=== PATIENT | male | born 1945 | race Caucasian/White ===

== ENCOUNTER 2020-02-17 14:04 | Outpatient (REF) | payer BC, SELFPAY ==
[2020-02-17 17:18] LABS: Anion Gap 6.8 mmol/L (3-11); BUN 21 mg/dL (7-18); CO2 25.2 mmol/L (21.0-32.0); CREATININE 1.13 mg/dL (0.70-1.30); Calcium 8.9 mg/dL (8.5-10.1); Calculated LDL 135 mg/dL (<100); Chloride 104 mmol/L (98-107); Cholesterol 204 mg/dL (<200); Glucose 83 mg/dL (74-106); HDL Cholesterol 50 mg/dL (40-60); Potassium 4.4 mmol/L (3.5-5.1); Sodium 136 mmol/L (136-145); Triglyceride 95 mg/dL (<150)
[2020-02-18 10:23] LABS: Hepatitis C Ab w Rflx HCV PCR Negative (Negative)
== END 2020-02-17 14:24 ==
LOC: NCHCN 14:04
PROVIDERS: PCP Internal Medicine; Visit Provider Family Medicine
DX: Z00.00 Encounter for general adult medical examination without abnormal findings (principal); I10 Essential (primary) hypertension; Z11.59 Encounter for screening for other viral diseases
CPT/HCPCS: 80048; 80061; 86803

== ENCOUNTER 2020-02-25 14:42 | Outpatient (REF) | payer BC, SELFPAY ==
[2020-03-02 03:22] LABS: SARS-CoV-2 RNA Undetected (Undetected); SARS-CoV-2 Specimen Source Nasopharynx
== END 2020-02-25 15:02 ==
LOC: NCHCN 14:42
PROVIDERS: PCP Internal Medicine; Visit Provider Nurse Practitioner Family
DX: Z20.828 Contact with and (suspected) exposure to other viral communicable diseases (principal)
CPT/HCPCS: U0003

== ENCOUNTER 2020-11-30 19:10 | Outpatient (REF) | payer BC, SELFPAY ==
[2020-11-30 19:36] LABS: CREATININE 1.1 mg/dL (0.70-1.30)
== END 2020-11-30 19:11 | disposition home or self-care (01) ==
LOC: NCHCN 19:10
PROVIDERS: PCP Internal Medicine; Visit Provider Family Medicine
DX: I10 Essential (primary) hypertension (principal)
CPT/HCPCS: 82565

== ENCOUNTER 2021-07-27 02:49 | Outpatient (CLI) | payer BC, SELFPAY ==
[2021-07-27] MEDS: Inhaler, Assist Device 1 EACH MC (11:26)
[2021-07-27] MEDS: Albuterol HFA 18 GM 200 PUFF INH IH (11:26)
--- NOTE | 2021-07-28 09:39 | W.PFT ---
Date of service: 07/27/21 Time of Service: 10:01 Pulmonary Function Test Result Requesting Provider Konstantin Land Indications: Interstitial fibrosis Interpretation Spirometry: There is mild airflow limitation. There is no significant bronchodilator response. Lung Volumes: There is evidence of hyperinflation. Diffusion Capacity: The diffusion is normal Airway Pressure: The airways resistance is normal Impression There is mild airflow limitation with hyperinflation and no bronchodilator response. Clinical Correlation therefore is recommended.
== END 2021-07-27 02:50 | disposition home or self-care (01) ==
LOC: RT 02:49
PROVIDERS: PCP Internal Medicine; Visit Provider Family Medicine
DX: J84.10 Pulmonary fibrosis, unspecified (principal); J43.9 Emphysema, unspecified; Z87.891 Personal history of nicotine dependence; R94.2 Abnormal results of pulmonary function studies
CPT/HCPCS: 94060; 94726; 94729

== ENCOUNTER 2023-01-14 13:14 | Outpatient (REF) | payer BC, SELFPAY | END 2023-01-14 13:15 | disposition home or self-care (01) | LOC: LBN 13:14 | PROVIDERS: PCP Family Medicine; Visit Provider Nurse Practitioner Family | DX: J02.9 Acute pharyngitis, unspecified (principal) | CPT/HCPCS: 87070 ==

== ENCOUNTER 2023-07-23 16:55 | Outpatient (REF) | payer BC, SELFPAY ==
[2023-07-23 18:47] LABS: Hemoglobin A1C 5.9 % (<5.7)
[2023-07-23 18:55] LABS: CREATININE 1.2 mg/dL (0.70-1.30); Calculated LDL 175 mg/dL (<100); Cholesterol 255 mg/dL (<200); Estimated GFR 61.52 (mL/min/1.73m2); HDL Cholesterol 62 mg/dL (40-60); Triglyceride 92 mg/dL (<150)
== END 2023-07-23 16:56 | disposition home or self-care (01) ==
LOC: NCHCN 16:55
PROVIDERS: PCP Family Medicine; Visit Provider Family Medicine
DX: I10 Essential (primary) hypertension (principal); R73.09 Other abnormal glucose; Z00.00 Encounter for general adult medical examination without abnormal findings
CPT/HCPCS: 36415; 80061; 82565; 83036

== ENCOUNTER 2024-12-23 15:00 | Outpatient (REF) | payer BC, SELFPAY ==
[2024-12-23 19:50] LABS: Abs Immature Grans 0.02 10^3/uL (0.0-0.06); Absolute Basophil Count 0.05 10^3/uL (0.0-0.2); Absolute Eosinophil Count 0.13 10^3/uL (0.0-0.7); Absolute Lymphocyte Count 1.75 10^3/uL (1.2-3.4); Absolute Monocyte Count 0.89 10^3/uL (0.1-0.8); Absolute Neutrophil Count 5.23 10^3/uL (1.2-6.7); Basophils % 0.6 %; Eosinophils % 1.6 %; HGB 15.3 g/dL (13.5-17.5); Immature Grans % 0.2 %; Lymphocytes % 21.7 %; MCH 30.5 pg (27.0-33.0); MCHC 33.3 % (32.0-36.0); MCV 92 fL (80-95); MPV 11.3 fL (8.0-11.0); Neutrophils % 64.9 %; Platelet Count 332 10^3/uL (130-400); RBC 5.01 10^6/uL (4.36-5.78); RDW 13.8 % (11.8-14.1); RDW-SD 46.6 fL; WBC 8.07 10^3/uL (4.4-10.8)
[2024-12-23 20:00] LABS: COMMENT (LAB VIEW ONLY) 104.41 mg/dL; Microalb ug/mg Crea 12.5 ug/mg Cr
[2024-12-23 20:13] LABS: BUN 20 mg/dL (7-18); CREATININE 1.1 mg/dL (0.70-1.30); Calcium 9.8 mg/dL (8.5-10.1); Calculated LDL 169 mg/dL (<100); Chloride 105 mmol/L (98-107); Cholesterol 246 mg/dL (<200); Estimated GFR 67.86 (mL/min/1.73m2); Glucose 91 mg/dL (74-106); HDL Cholesterol 62 mg/dL (>or=40); Potassium 4.3 mmol/L (3.5-5.1); Sodium 138 mmol/L (136-145); TSH (W/Ref FT4) 2.56 uIU/mL (0.36-3.74); Triglyceride 79 mg/dL (<150)
== END 2024-12-23 15:01 | disposition home or self-care (01) ==
LOC: NCHCN 15:00
PROVIDERS: PCP Student in an Organized Health Care Education/Training Program; Visit Provider Student in an Organized Health Care Education/Training Program
DX: E78.5 Hyperlipidemia, unspecified (principal); I10 Essential (primary) hypertension
CPT/HCPCS: 80048; 80061; 82043; 82570; 84443; 85025